=== PATIENT | male | born 1995 | race Caucasian/White ===

== ENCOUNTER 2016-06-26 18:27 | Emergency (ER) | payer OTHER | END 2016-06-26 19:36 | disposition home or self-care (01) | LOC: ER 18:27 | DX: B35.4 Tinea corporis (principal); F17.210 Nicotine dependence, cigarettes, uncomplicated ==

== ENCOUNTER 2016-08-28 19:20 | Emergency (ER) | payer OTHER | END 2016-08-28 19:50 | disposition left against medical advice (07) | LOC: ER 19:20 | DX: Z53.21 Procedure and treatment not carried out due to patient leaving prior to being seen by health care provider (principal) ==